=== PATIENT | female | born 1950 | race Caucasian/White ===

== ENCOUNTER 2018-06-02 09:09 | Emergency (ER) | payer OTHER, MEDICARE ==
[2018-06-02] MEDS: ACETAMINOPHEN 500 MG TAB PO (09:56)
== END 2018-06-02 11:52 | disposition home or self-care (01) ==
LOC: FTE 09:09
DX: S70.02XA Contusion of left hip, initial encounter (principal); S70.12XA Contusion of left thigh, initial encounter; I10 Essential (primary) hypertension; E11.9 Type 2 diabetes mellitus without complications; W01.0XXA Fall on same level from slipping, tripping and stumbling without subsequent striking against object, initial encounter; Y92.9 Unspecified place or not applicable; Z99.2 Dependence on renal dialysis; Z79.84 Long term (current) use of oral hypoglycemic drugs
CPT/HCPCS: 72170; 73550; 99284-25

== ENCOUNTER 2018-11-13 07:25 | Inpatient (IN) | payer MEDICARE, OTHER ==
[2018-11-13 08:49] LABS: ADD MAN DIFF? NO
[2018-11-13 08:51] LABS: BASOPHILS % 0.4 % (0.0-2.0); EOSINOPHILS % 0.4 % (0.0-7.0); HEMATOCRIT 32.4 % (37.0-47.0); HEMOGLOBIN 10.5 g/dl (12.0-16.0); LYMPHOCYTES # 2.4 10^3/ul (0.8-2.9); LYMPHOCYTES % 24.4 % (15.0-51.0); MEAN CORPUSCULAR HEMOGLOBIN 30.2 pg (29.0-33.0); MEAN CORPUSCULAR HGB CONC 32.4 g/dl (32.0-37.0); MEAN CORPUSCULAR VOLUME 93.1 fl (82.0-101.0); MEAN PLATELET VOLUME 10.8 fl (7.4-10.4); MONOCYTE # 0.8 10^3/ul (0.3-0.9); MONOCYTES % 7.9 % (0.0-11.0); NEUTROPHIL # 6.6 10^3/ul (1.6-7.5); NEUTROPHILS % 66.7 % (39.0-77.0); PLATELET COUNT 228 10^3/UL (140-415); RED BLOOD COUNT 3.48 10^6/ul (4.20-5.40); RED CELL DISTRIBUTION WIDTH 14.8 % (11.5-14.5)
[2018-11-13 08:51] LABS: WHITE BLOOD COUNT 9.8 10^3/ul (4.8-10.8)
[2018-11-13 08:57] LABS: INR 1.08; PARTIAL THROMBOPLASTIN TIME 29.7 Sec (23.0-35.0); PROTIME 14.1 Sec (11.9-14.9); PT RATIO 1.1
[2018-11-13 09:01] LABS: ALANINE AMINOTRANSFERASE 16 IU/L (13-69); ALBUMIN 4.5 g/dl (3.3-4.9); ALBUMIN/GLOBULIN RATIO 1.02; ALKALINE PHOSPHATASE 366 IU/L (42-121); ANION GAP 16 (5-13); ASPARTATE AMINO TRANSFERASE 48 IU/L (15-46); BILIRUBIN,INDIRECT 0.5 mg/dl (0-1.1); BILIRUBIN,TOTAL 0.5 mg/dl (0.2-1.3); BLOOD UREA NITROGEN 47 mg/dl (7-20); CALCIUM 9.9 mg/dl (8.4-10.2); CARBON DIOXIDE 29 mmol/L (21-31); CHLORIDE 92 mmol/L (97-110); CREATININE 7.34 mg/dl (0.44-1.00); Estimated GFR 6 mL/min (>60); GLUCOSE 161 mg/dl (70-220); SODIUM 137 mmol/L (135-144); TOTAL PROTEIN 8.9 g/dl (6.1-8.1)
[2018-11-13 09:02] LABS: POTASSIUM 5.4 mmol/L (3.5-5.1)
[2018-11-13 09:11] LABS: TROPONIN-I 0.174 ng/ml (0.000-0.120)
[2018-11-13] MEDS: LEVOFLOXACIN 750MG/D5W (PMX) 150 ML IVPB (09:28)
[2018-11-13] MEDS: NITROGLYCERIN 2% 1 GM OINT PKT TD (09:37)
[2018-11-13] MEDS: ASPIRIN 325 MG TAB PO (09:37)
[2018-11-13] MEDS ORDERED: ONDANSETRON 4 MG INJ IV ×2 (10:30→11:00)
[2018-11-13] MEDS ORDERED: ACETAMINOPHEN 325 MG TAB PO ×2 (10:30→11:00)
[2018-11-13] MEDS ORDERED: NACL 0.9% 3 ML SYG IV (11:00)
[2018-11-13] MEDS ORDERED: LABETALOL HCL 20MG INJ IV (11:00)
[2018-11-13] MEDS ORDERED: NITROGLYCERIN (SL) 0.4 MG TAB SL (11:00)
[2018-11-13] MEDS ORDERED: morphine 2 MG INJ IV (11:00)
[2018-11-13] MEDS ORDERED: HYDROCODONE/APAP (5/325) TAB PO (11:00)
[2018-11-13] MEDS: VANCOMYCIN 1 GM (PMX) 250 ML IVPB (11:30)
[2018-11-13] MEDS ORDERED: ALBUTEROL/IPRATROPIUM (NEB) 3 ML AMP HHN (14:00)
[2018-11-13] MEDS ORDERED: SOD CHLORIDE 0.9% 1,000 ML IV (14:31)
[2018-11-13] MEDS ORDERED: ALBUMIN HUMAN 25% 50 ML IV (15:00)
[2018-11-13] MEDS: CLONIDINE 0.3 MG/24 HR PATCH TRANSDERM (15:30)
[2018-11-13] MEDS: LOSARTAN 50 MG TAB PO (15:33)
[2018-11-13 16:37] LABS: HEPATITIS B SURFACE ANTIGEN NEGATIVE (NEGATIVE)
[2018-11-13] MEDS ORDERED: hydrALAzine 20 MG INJ IV (17:00)
[2018-11-13] MEDS ORDERED: BUDESONIDE (NEB) 0.5MG/2ML AMP HHN (20:00)
[2018-11-13] MEDS ORDERED: AMLODIPINE 10 MG TAB PO (21:00)
[2018-11-13] MEDS: ATORVASTATIN 80 MG TAB PO (21:00)
[2018-11-13] MEDS: CEFEPIME 1GM/50 ML (PMX) 50 ML IVPB (21:00)
[2018-11-13] MEDS: ALBUTEROL/IPRATROPIUM (NEB) 3 ML AMP HHN (23:19)
[2018-11-13] MEDS: BUDESONIDE (NEB) 0.5MG/2ML AMP HHN (23:31)
[2018-11-13 23:45] LABS: TROPONIN-I 0.921 ng/ml (0.000-0.120)
[2018-11-14] MEDS: LISINOPRIL 20 MG TAB PO (03:53)
[2018-11-14] MEDS ORDERED: PANTOPRAZOLE (EC) 40 MG TAB PO (06:00)
[2018-11-14] MEDS ORDERED: ASPIRIN 81 MG TAB PO (09:00)
[2018-11-14] MEDS ORDERED: LISINOPRIL 20 MG TAB PO ×2 (09:00)
== END 2018-11-14 03:21 | disposition left against medical advice (07) | DRG 193 ==
LOC: E/R 07:25 → 6WM 10:25
PROVIDERS: Internal Medicine
DX: J18.9 Pneumonia, unspecified organism (principal); N18.6 End stage renal disease; J96.01 Acute respiratory failure with hypoxia; I12.0 Hypertensive chronic kidney disease with stage 5 chronic kidney disease or end stage renal disease; E78.5 Hyperlipidemia, unspecified; R74.8 Abnormal levels of other serum enzymes; K21.9 Gastro-esophageal reflux disease without esophagitis; I16.0 Hypertensive urgency; Z88.0 Allergy status to penicillin; Z90.49 Acquired absence of other specified parts of digestive tract; Z98.51 Tubal ligation status; Z99.2 Dependence on renal dialysis
CPT/HCPCS: 36415; 71045; 80053; 83605; 84484; 85025; 85610; 85730; 87040-91; 87340; 87400; 93005; 94640; 94664; 96365; 99285-25